=== PATIENT | male | born 1960 | race Caucasian/White ===

== ENCOUNTER 2018-03-15 08:17 | Emergency (ER) | payer BC ==
[2018-03-15] MEDS ORDERED: VANCOMYCIN HCL INJ 1000 MG VIAL IV ONE (09:48)
[2018-03-15] MEDS ORDERED: LIDOCAINE 2% INJ (20 MG/ML) 20 ML MDV INJ ONE (09:49)
[2018-03-15] MEDS ORDERED: PIPERACILLIN/TAZOBACTAM 3.375 GM VIAL IV ONE (09:50)
--- NOTE | 2018-03-15 09:58 | ER Document Report ---
ED General - General Chief Complaint: Abscess Stated Complaint: POSSIBLE ABSCESS Time Seen by Provider: 03/15/18 09:29 Primary Care Provider: OMAYRA RIOS MD [Primary Care Provider] - Follow up as needed Notes: 58-year-old male who presents with several days of what he describes as spider bites. On bilateral outer thighs he has areas that are draining pus. States he did not see the spider. He states they both came up at the same time. He denies fever or chills. Complains of severe aching pain in both outer thighs. States she has been trying to stab them with a needle and drained pus. He states is become severe and he presents here to the ER. Movement seems to make his pain worse. Nothing else makes it better. TRAVEL OUTSIDE OF THE [place] IN LAST 30 DAYS: No - Related Data Allergies/Adverse Reactions: No Known Allergies Allergy (Verified 03/15/18 08:18) Past Medical History - Social History Smoking Status: Never Smoker Chew tobacco use (# tins/day): No Frequency of alcohol use: Social Family History: Other Patient has suicidal ideation: No Patient has homicidal ideation: No Renal/ Medical History: Denies: Hx Peritoneal Dialysis Review of Systems - Review of Systems Constitutional: denies: Chills, Fever Cardiovascular: denies: Chest pain, Dyspnea Respiratory: denies: Short of breath Gastrointestinal: denies: Diarrhea, Nausea, Vomiting Skin: Other - Abscess bilateral thighs -: Yes All other systems reviewed and negative Physical Exam - Vital signs Vitals: Temp Pulse Resp BP Pulse Ox 97.8 F 90 16 129/85 H 96 03/15/18 08:21 03/15/18 08:21 03/15/18 08:21 03/15/18 08:21 03/15/18 08:21 - Notes Notes: GENERAL_APPEARANCE: well_nourished, alert, cooperative, no_acute_distress, no_obvious_discomfort. VITALS: reviewed, see vital signs table. HEAD: no_swelling\tenderness on the head. EYES: conjunctiva_clear. NOSE: no_nasal_discharge. MOUTH: (-)decreased moisture. THROAT: no_throat_inflammation, no_airway_obstruction. no_lymphadenopathy NECK: supple, no_neck_tenderness, (-)thyromegaly. BACK: no_back_tenderness. CHEST_WALL: no_chest_tenderness. LUNGS: no_wheezing, no_rales, no_rhonchi, (-)accessory muscle use, good air exchange bilateral. HEART: normal_rate, normal_rhythm, normal_S1, normal_S2, (-)S3, (-)S4, no_murmur, no_rub. ABDOMEN: soft, no_abd_tenderness, (-)guarding, (-)rebound, no_organomegaly, no_abd_masses. EXTREMITIES: Bilateral outer thighs there is about a 4 cm abscess with fluctuance bilateral. There is needle recinos with the patient was trying to drain this himself there is overlying cellulitis bilateral. It is warm to touch it is fluctuant. SKIN: warm, dry, good_color, no_rash. MENTAL_STATUS: speech_clear, oriented_X_3, normal_affect, responds_appropriately to questions. Course - Re-evaluation Re-evalutation: 03/15/18 09:57 The patient presents with nearly identical abscesses on both lateral thighs. They are about 4 cm in diameter. There is overlying cellulitis. It is warm to touch is fluctuant Will incise and drain due to the cellulitis we will give the patient dose of IV antibiotics here. 03/15/18 11:21 With abscesses incised and drained without difficulty packing placed. Return to pull the packing out in [address] patient on clindamycin for home. - Vital Signs Vital signs: Temp Pulse Resp BP Pulse Ox 97.8 F 90 16 129/85 H 96 03/15/18 08:21 03/15/18 08:21 03/15/18 08:21 03/15/18 08:21 03/15/18 08:21 - Laboratory Result Diagrams: 03/15/18 09:25 03/15/18 09:25 Laboratory results interpreted by me: 03/15/18 09:25 WBC 14.6 H RBC 4.26 L Hgb 13.4 L Absolute Neutrophils 9.5 H Absolute Monocytes 1.8 H Procedures - Eye Procedure Right Time completed: 11:03 - Incision and Drainage Left Mid- Thigh Type: Single Anesthetic type: 2% Lidocaine mL's of anesthetic: 3 Blade size: 11 I&D procedure: Chlorprep applied Incision Method: Incision made by scalpel Amount/type of drainage: 10 cc purulent Notes: 03/15/18 11:02 Performed packing placed Right Mid- Thigh Time completed: 11:03 Type: Simple Anesthetic type: 2% Lidocaine Blade size: 11 I&D procedure: Chlorprep applied Incision Method: Incision made by scalpel Amount/type of drainage: 5cc purulent material Notes: 03/15/18 11:04 Iodoform placed tacking Discharge - Discharge Clinical Impression: Abscess Condition: Good Disposition: HOME, SELF-CARE Instructions: Abscess ([facility]) Additional Instructions: You may pull the packing out in 2 days. Keep the wounds dressed. If any fever of 101 or above or anything issue return to the ER. Prescriptions: Clindamycin HCl 300 mg PO QID #40 capsule Hydrocodone Bit/Acetaminophen [Hydrocodon-Acetaminophen 5-325] 1 each PO QID PRN #12 tablet PRN Reason: Referrals: OMAYRA RIOS MD [Primary Care Provider] - Follow up as needed
[2018-03-15 10:04] LABS: ABSOLUTE BASOPHILS # (AUTO) 0.1 10^3/uL (0.0-0.2); ABSOLUTE EOSINOPHILS # (AUTO) 0.2 10^3/uL (0.0-0.6); ABSOLUTE MONOCYTES (AUTO) 1.8 10^3/uL (0.1-1.4); ABSOLUTE NEUT (AUTO) 9.5 10^3/uL (1.7-8.2); BASOPHILS % (AUTO) 0.5 % (0-2); EOSINOPHILS % (AUTO) 1.5 % (0-6); HEMATOCRIT 38.5 % (37.9-51.0); HEMOGLOBIN 13.4 g/dL (13.5-17.0); LYMPHOCYTES % (AUTO) 20.7 % (13-45); MEAN CORPUSCULAR HEMOGLOBIN 31.4 pg (27.0-33.4); MEAN CORPUSCULAR HGB CONC 34.7 g/dL (32.0-36.0); MEAN CORPUSCULAR VOLUME 90 fl (80-97); MONOCYTES % (AUTO) 12.5 % (3-13); PLATELET COUNT 377 10^3/uL (150-450); RED BLOOD COUNT 4.26 10^6/uL (4.35-5.55); SEGMENTED NEUTROPHILS % (AUTO) 64.8 % (42-78); TOTAL CELLS COUNTED % (AUTO) 100 %; WHITE BLOOD COUNT 14.6 10^3/uL (4.0-10.5)
[2018-03-15 10:09] LABS: ANION GAP 10 (5-19); BLOOD UREA NITROGEN 15 mg/dL (7-20); CALCIUM 9.2 mg/dL (8.4-10.2); CARBON DIOXIDE 28 mmol/L (22-30); CHLORIDE 100 mmol/L (98-107); GLUCOSE 104 mg/dL (75-110); POTASSIUM 4.5 mmol/L (3.6-5.0)
[2018-03-15 13:18] VITALS: BP 120/69
== END 2018-03-15 13:23 | disposition home or self-care (01) ==
LOC: ER 08:17
PROC: 0H9JXZZ Drainage of Left Upper Leg Skin, External Approach (ICD-10-PCS; principal; 2018-03-15)
PROC: 0H9HXZZ Drainage of Right Upper Leg Skin, External Approach (ICD-10-PCS; 2018-03-15)
DX: L02.416 Cutaneous abscess of left lower limb (principal); L02.415 Cutaneous abscess of right lower limb
CPT/HCPCS: 99283; 96365; 96366; 96367; 36415; 87040; 87070; 87205; 85025; 87075; 87077; 80048; 87186; 10060; A6266; J3490; J3370; J2543